=== PATIENT | female | born 1990 | race African-American/Black ===

== ENCOUNTER 2020-07-13 14:54 | Emergency (ER) | payer OTHER ==
[~2020-07-13] VITALS: Ht 160 cm; Wt 68.0 kg
--- NOTE | 2020-07-13 17:01 | PHYS DOC ---
Past History Past Medical History: No Pertinent History (ALINA BURROWS APRN) Additional Past Surgical Histo: right foot surgery (ALINA BURROWS APRN) Alcohol Use: Occasionally (ALINA BURROWS APRN) General Adult EDM: Chief Complaint: ABDOMINAL PAIN HPI: HPI: Patient is a 30-year-old female who presents with abdominal pain x3 days. Patient reports the pain is left lower quadrant and also right lower quadrant. Last bowel movement was last night, patient reports hard stool and took stool softener with little relief. Patient reports the pain is a crampy feeling "it feels like it is hard to walk that I might be constipated". Patient also reports taking Pepto with no relief. Patient denies nausea, vomiting, diarrhea, fevers. No complaints of pain or frequency with urination. (ALINA BURROWS APRN) Review of Systems: Review of Systems: Constitutional: Denies fever or chills Eyes: Denies change in visual acuity HENT: Denies nasal congestion or sore throat Respiratory: Denies cough or shortness of breath Cardiovascular: Denies chest pain or edema GI: Reports right lower quadrant, left lower quadrant abdominal pain. Denies nausea, vomiting, bloody stools or diarrhea : Denies dysuria, frequency Musculoskeletal: Denies back pain or joint pain Integument: Denies rash Neurologic: Denies headache, focal weakness or sensory changes Endocrine: Denies polyuria or polydipsia Lymphatic: Denies swollen glands Psychiatric: Denies depression or anxiety (ALINA BURROWS APRN) Allergies: Allergies: Allergies Coded Allergies Type Severity Reaction Last Updated Verified No Known Drug Allergies 07/13/20 No (ALINA BURROWS APRN) Physical Exam: PE: Constitutional: Well developed, well nourished, no acute distress, non-toxic appearance. [] HENT: Normocephalic, atraumatic, bilateral external ears normal, oropharynx moist, no oral exudates, nose normal. [] Eyes: PERRLA, EOMI, conjunctiva normal, no discharge. [] Neck: Normal range of motion, no tenderness, supple, no stridor. [] Cardiovascular:Heart rate regular rhythm, no murmur [] Lungs & Thorax: Bilateral breath sounds clear to auscultation [] Abdomen: Bowel sounds normal, soft, right lower quadrant and left lower quadrant tenderness, no masses, no pulsatile masses. [] Skin: Warm, dry, no erythema, no rash. [] Back: No tenderness, no CVA tenderness. [] Extremities: No tenderness, no cyanosis, no clubbing, ROM intact, no edema. [] Neurologic: Alert and oriented X 3, normal motor function, normal sensory function, no focal deficits noted. [] Psychologic: Affect normal, judgement normal, mood normal. [] (ALINA BURROWS APRN) Current Patient Data: Labs: Laboratory Tests Test 07/13/20 16:47 POC Urine HCG, Qualitative hcg negative (Negative) Vital Signs: Vital Signs Date Time Temp Pulse Resp B/P (MAP) Pulse Ox O2 Delivery O2 Flow Rate FiO2 07/13/20 15:54 75 18 113/77 (89) 99 Room Air 07/13/20 15:25 97.8 (ALINA BURROWS APRN) EKG: EKG: [] (ALINA BURROWS APRN) Radiology/Procedures: Radiology/Procedures: []CT ABDOMEN+PELVIS WO INDICATION: Reason: RLQ , LLQ PAIN / Spl. Instructions: / History: EXAM: Noncontrast CT of the abdomen and pelvis. Coronal and sagittal reformatted images were performed. PQRS compliance statement: One or more of the following individualized dose reduction techniques were utilized for this examination: 1. Automated exposure control 2. Adjustment of the mA and/or kV according to patient size 3. Use of iterative reconstruction technique COMPARISON: None FINDINGS: No free air, free fluid, or fluid collection. Lower chest: The visualized lower lungs are aerated. No pleural or pericardial effusion. ABDOMEN: Liver: The noncontrast liver is homogeneous in attenuation. Gallbladder and biliary: Normal gallbladder without radiopaque stone. Normal caliber bile ducts. Spleen: Normal spleen. Pancreas: The noncontrast pancreas is homogeneous in attenuation without peripancreatic inflammatory changes. Adrenal glands: Normal adrenal glands. Kidneys and ureters: No opaque urinary calculi. Normal kidneys and ureters. GI tract: The stomach is decompressed and poorly evaluated. Normal caliber small bowel and colon. Normal appendix. Moderate colonic stool burden. Vascular structures: Normal caliber abdominal aorta. Lymph nodes: No lymphadenopathy in the abdomen or pelvis. PELVIS: Genitourinary system: Urinary bladder is decompressed. Uterus is present. SKELETAL STRUCTURES AND SOFT TISSUES: No fracture or destructive lesion in the visualized skeleton. IMPRESSION: No acute findings. Electronically signed by: Mahesh Lyles MD (07/13/2020 5:20 PM) [facility] DICTATED AND SIGNED BY: MAHESH LYLES MD DATE: 07/13/20 661 CC: BLAINE SPENCE DO; ALINA BURROWS APRN; PCP,NO ~MTH0 0 (ALINA BURROWS APRN) Heart Score: Risk Factors: Risk Factors: DM, Current or recent (<one month) smoker, HTN, HLP, family history of CAD, obesity. Risk Scores: Score 0 - 3: 2.5% MACE over next 6 weeks - Discharge Home Score 4 - 6: 20.3% MACE over next 6 weeks - Admit for Clinical Observation Score 7 - 10: 72.7% MACE over next 6 weeks - Early Invasive Strategies (ALINA BURROWS APRN) Course & Med Decision Making: Course & Med Decision Making Pertinent Labs and Imaging studies reviewed. (See chart for details) [] 30-year-old female with abdominal pain x3 days pain is located in the left lower quadrant and right lower quadrant. Patient states "she feels like it is hard to walk and she might be constipated". Patient reports taking Pepto and will softener with little relief. His last bowel movement was yesterday patient reports that it was small and hard. All labs negative, CT abdomen and pelvis negative. UA negative for UTI. Discharging patient to home. Educate patient on taking stool softeners at home for constipation. Patient to follow-up with primary care physician if symptoms are not relieved in the next 2 days. Patient can return to ER if symptoms worsen. (ALINA BURROWS APRN) Dragon Disclaimer: Dragon Disclaimer: This electronic medical record was generated, in whole or in part, using a voice recognition dictation system. (ALINA BURROWS APRN) Attending Co-Sign I oversaw on the above date of service of this patient and discussed the care with the FAMILY LIVING EDUCATOR. Patient nontoxic, hemodynamically stable and ambulatory without an acute abdomen. I agree with the findings, plan of care, and disposition as documented. (BLAINE SPENCE DO) Departure Departure: Impression: Primary Impression: Abdominal pain Qualified Codes: R10.30 - Lower abdominal pain, unspecified Additional Impression: Constipation Disposition: 01 DC HOME SELF CARE/HOMELESS Condition: GOOD Referrals: PCP,NO (PCP) Patient Instructions: Constipation, Adult, [id number] Additional Instructions: Room for pain pain in the left lower quadrant and right lower quadrant. All labs are within normal limits, CT of your abdomen and pelvis were both negative. Urine analysis was negative for infection. Continue taking stool softeners at home for constipation. Please follow-up with primary care physician if symptoms are not relieved in the next 2 days. You can return to ER if symptoms worsen. ALINA BURROWS APRN Jul 13, 2020 17:01 BLAINE SPENCE DO Jul 14, 2020 06:54
[2020-07-13 17:17] LABS: BILIRUBIN,URINE NEG (NEG); CLARITY,URINE CLEAR; COLOR,URINE YELLOW; GLUCOSE,URINE NEG (NEG); NITRITE,URINE NEG (NEG); UROBILINOGEN,URINE 0.2 mg/dL (0.2 mg/dL)
[2020-07-13 17:22] LABS: BASO # 0.1 x10^3/uL (0.0-0.2); BASO % 1 % (0-3); EOS # 0.2 x10^3/uL (0.0-0.7); EOS % 3 % (0-3); HEMATOCRIT 37.8 % (36.0-47.0); HEMOGLOBIN 12.3 g/dL (12.0-15.5); LYMPH # 2.6 x10^3/uL (1.0-4.8); LYMPH % 34 % (24-48); MEAN CORPUSCULAR HEMOGLOBIN 27 pg (25-35); MEAN CORPUSCULAR HGB CONC 33 g/dL (31-37); MEAN CORPUSCULAR VOLUME 84 fL (79-100); MONO # 0.6 x10^3/uL (0.0-1.1); MONO % 8 % (0-9); NEUT # 4.1 x10^3uL (1.8-7.7); NEUT % 54 % (31-73); PLATELET COUNT 337 x10^3/uL (140-400); RED BLOOD COUNT 4.51 x10^6/uL (3.50-5.40); RED CELL DISTRIBUTION WIDTH 14.2 % (11.5-14.5); WHITE BLOOD COUNT 7.6 x10^3/uL (4.0-11.0)
[2020-07-13 17:22] LABS: BACTERIA,URINE FEW /HPF (0-FEW); SQUAMOUS EPITHELIAL CELL,UR OCC /LPF; WBC,URINE OCC /HPF (0-4)
--- NOTE | 2020-07-13 17:23 | RAD ---
CT ABDOMEN+PELVIS WO INDICATION: Reason: RLQ , LLQ PAIN / Spl. Instructions: / History: EXAM: Noncontrast CT of the abdomen and pelvis. Coronal and sagittal reformatted images were perform ed. PQRS compliance statement: One or more of the following individualized dose reduction techniques were utilized for this examinat ion: 1. Automated exposure control 2. Adjustment of the mA and/or kV according to patient size 3. Use of iterative reconstruction technique COMPARISON: None FINDINGS: No free air, free fluid, or fluid collection. Lower chest: The visualized lower lungs are aerated. No pleural or pericardial effusion. ABDOMEN: Liver: The noncontrast liver is homogeneous in attenuation. Gallbladder and biliary: Normal gallbladder without radiopaque stone. Normal caliber bile ducts. Spleen: Normal spleen. Pancreas: The noncontrast pancreas is homogeneous in attenuation without peripancreatic inflammatory changes. Adrenal glands: Normal adrenal glands. Kidneys and ureters: No opaque urinary calculi. Normal kidneys and ureters. GI tract: The stomach is decompressed and poorly evaluated. Normal caliber small bowel and colon. Nor mal appendix. Moderate colonic stool burden. Vascular structures: Normal caliber abdominal aorta. Lymph nodes: No lymphadenopathy in the abdomen or pelvis. PELVIS: Genitourinary system: Urinary bladder is decompressed. Uterus is present. SKELETAL STRUCTURES AND SOFT TISSUES: No fracture or destructive lesion in the visualized skeleton. IMPRESSION: No acute findings. Electronically signed by: Levi Gasca MD (07/13/2020 5:20 PM) [facility]
[2020-07-13 17:30] LABS: CREATININE 0.7 mg/dL (0.6-1.0); GFR 120.6; POTASSIUM 4.3 mmol/L (3.5-5.1)
[2020-07-13 17:36] LABS: ALBUMIN 3.8 g/dL (3.4-5.0); TOTAL BILIRUBIN 0.3 mg/dL (0.2-1.0); TOTAL PROTEIN 7.7 g/dL (6.4-8.2)
[2020-07-13 17:53] VITALS: BP 115/81
== END 2020-07-13 17:53 | disposition home or self-care (01) ==
LOC: ER 14:54
DX: K59.00 Constipation, unspecified (principal); R10.32 Left lower quadrant pain; R10.31 Right lower quadrant pain
CPT/HCPCS: 36415; 74176; 80053; 81001; 81025; 85025; 87086; 99284

== ENCOUNTER 2020-12-30 14:00 | Emergency (ER) | payer OTHER ==
[~2020-12-30] VITALS: Ht 160 cm; Wt 67.2 kg
[2020-12-30 14:10] VITALS: BP 115/75
--- NOTE | 2020-12-30 14:28 | PHYS DOC ---
Past History Past Medical History: Migraines (SIENA JAY APRN) Past Surgical History: Other Additional Past Surgical Histo: right foot surgery (SIENA JAY APRN) Alcohol Use: Occasionally (SIENA JAY APRN) General Adult EDM: Chief Complaint: GENERALIZED BODY ACHES HPI: HPI: Patient is a 30-year-old -[place] female comes to the ER today for migraine headache and generalized body aches. She has chronic body aches and fatigue and is currently being worked up for possible autoimmune disorder. She states that they have ruled out lupus. The migraine started this morning and the pain is located in the right frontal region. The pain is constant and it does not radiate, no aggravating or alleviating factors patient reports that she has just been trying to rest to help with the migraine. She is also reporting photophobia. She does not take any current medications for her migraine headaches but states that she has an appointment to follow-up soon with a neurologist. She denies any sick exposures, cough, shortness of breath, fevers, abdominal pain, nausea vomiting or diarrhea, dizziness. She states this is not the worst headache of her life. (SIENA JAY APRN) Review of Systems: Review of Systems: 14 body systems of the review of systems have been reviewed. See HPI for pertinent positive and negative responses, otherwise all other systems are negative, nonpertinent or noncontributory (SIENA JAY APRN) Allergies: Allergies: Allergies Coded Allergies Type Severity Reaction Last Updated Verified No Known Drug Allergies 07/13/20 No (SIENA JAY APRN) Physical Exam: PE: Constitutional: Well developed, well nourished, no acute distress, non-toxic appearance. [] HENT: Normocephalic, atraumatic Eyes: PERRLA, EOMI, conjunctiva normal, no discharge. [] Neck: Normal range of motion, no tenderness, supple, no stridor. [] Cardiovascular:Heart rate regular rhythm, no murmur [] Lungs & Thorax: Bilateral breath sounds clear to auscultation [] Abdomen: Bowel sounds normal, soft, no tenderness, no masses, no pulsatile masses. [] Skin: Warm, dry, no erythema, no rash. [] Back: No bony spinal tenderness with palpation, patient does have generalized back pain [] Extremities: no cyanosis, no clubbing, ROM intact, no edema, patient has no joint tenderness is reporting generalized pain with palpation all extremities [] Neurologic: Alert and oriented X 3, normal motor function, normal sensory f unction, no focal deficits noted. [] Psychologic: Affect normal, judgement normal, mood normal. [] (SIENA JAY APRN) Current Patient Data: Vital Signs: Vital Signs Date Time Temp Pulse Resp B/P (MAP) Pulse Ox O2 Delivery O2 Flow Rate FiO2 12/30/20 14:10 98.6 63 20 115/75 (88) 98 Room Air (SIENA JAY APRN) EKG: EKG: [] (SIENA JAY APRN) Radiology/Procedures: Radiology/Procedures: [] (SIENA JAY APRN) Heart Score: C/O Chest Pain: No Risk Factors: Risk Factors: DM, Current or recent (<one month) smoker, HTN, HLP, family history of CAD, obesity. Risk Scores: Score 0 - 3: 2.5% MACE over next 6 weeks - Discharge Home Score 4 - 6: 20.3% MACE over next 6 weeks - Admit for Clinical Observation Score 7 - 10: 72.7% MACE over next 6 weeks - Early Invasive Strategies (SIENA JAY APRN) Course & Med Decision Making: Course & Med Decision Making Pertinent Labs and Imaging studies reviewed. (See chart for details) Patient is a 30-year-old female that was seen in the ER today for migraine headache along with chronic body aches. She currently takes no meds for her migraines but has an appointment to follow-up with the neurologist. She is currently being evaluated for possible autoimmune disorder related to her chronic body aches and chronic fatigue. In the ER today she was given Compazine, Benadryl, and Toradol. Following medication administration patient reports that she is feeling much better and no longer has a headache. She was educated on treatments at home for her headaches such as Tylenol or ibuprofen, rest in a dark quiet room, avoidance of electronics. She is resting comfortably on the ER cot. Given the patient's response to treatment I agree with her that this was her typical migraine headache. She was educated on the need to continue to follow-up with the neurologist and follow-up regarding her possible autoimmune disorder. Patient is agreeable with her treatment plan. (SIENA JAY APRN) Course & Med Decision Making I oversaw on the above date of service of this patient. This patient was evaluated, examined, treated, and dispositioned from the emergency department by the mid-level practitioner. Although I was working at the time and available for consultation, no assistance was requested and I did not see or immediately direct the care of this patient. I reviewed note and agree to findings, plan of care, and disposition as stated. Electronically signed, Blaine Spence DO (BLAINE SPENCE DO) Muna Disclaimer: Muna Disclaimer: This electronic medical record was generated, in whole or in part, using a voice recognition dictation system. (SIENA JAY APRN) Departure Departure: Impression: Primary Impression: Migraine Qualified Codes: G43.009 - Migraine without aura, not intractable, without status migrainosus Disposition: HOME / SELF CARE / HOMELESS Condition: GOOD Referrals: PCP,NO (PCP) Patient Instructions: Migraine Headache Additional Instructions: Thank you for choosing [facility] [place] and allowing me to participate in your care. As we have discussed, your findings indicate you are experiencing a migraine headache. As we have discussed, the treatment includes Tylenol/ibuprofen, rest in a dark quiet room, avoidance of electronics. It may be beneficial for you to keep a headache log to help determine what triggers her migraines. Please keep your appointment with the neurologist to determine if there are any additional treatments available to you. Regarding your chronic generalized body aches please continue to follow-up with your doctor to rule out a possible autoimmune disorder that may be causing the symptoms. Please follow up with your primary care provider tomorrow regarding your ER visit. If your symptoms worsen or you develop severe headache, uncontrollable nausea or vomiting, altered mental status, dizziness, fevers, neck stiffness please return. SIENA JAY APRN Dec 30, 2020 14:28 BLAINE SPENCE DO Jan 01, 2021 07:12
[2020-12-30] MEDS ORDERED: KETOROLAC 15 MG/ML VIAL. IVP ONE (14:30)
[2020-12-30] MEDS ORDERED: diphenhydrAMINE 50 MG/ML VIAL IVP ONE (14:30)
[2020-12-30] MEDS ORDERED: PROCHLORPERAZINE 10 MG/2 ML VIAL. IV ONE (14:30)
[2020-12-30] MEDS ORDERED: IV NORMAL SALINE 1,000ML 1,000 ML IV ONE (14:30)
== END 2020-12-30 15:34 | disposition home or self-care (01) ==
LOC: ER 14:00
DX: G43.909 Migraine, unspecified, not intractable, without status migrainosus (principal)
CPT/HCPCS: 81025; 96361; 96374; 96375; 99284; J0780; J1200; J1885; J7030

== ENCOUNTER 2021-06-21 05:17 | Emergency (ER) | payer OTHER ==
[~2021-06-21] VITALS: Ht 160 cm; Wt 61.7 kg
--- NOTE | 2021-06-21 05:19 | PHYS DOC ---
Past History Past Medical History: Migraines (REBECCA BRIDGES MD) Past Surgical History: Other Additional Past Surgical Histo: right foot surgery (REBECCA BRIDGES MD) Alcohol Use: Occasionally (REBECCA BRIDGES MD) General Adult HPI: HPI: ". I hurt everywhere.. fever, sore throat.. chills.." Patient is a 31 year old female who presents with above hx and complaints of sore throat, fever, chills, malaise, arthralgia, myalgia, and nausea. No recent travel. No specific ill contacts. No history immunosuppression. Normally healthy. (REBECCA BRIDGES MD) Review of Systems: Review of Systems: Constitutional: Complains of fever or chills Eyes: Denies change in visual acuity HENT: Planes of nasal congestion and sore throat Respiratory: Denies cough or shortness of breath Cardiovascular: Denies chest pain or edema GI: Denies abdominal pain, nausea, vomiting, bloody stools or diarrhea : Denies dysuria Musculoskeletal: Denies back pain or joint pain Integument: Denies rash Neurologic: Denies headache, focal weakness or sensory changes Endocrine: Denies polyuria or polydipsia Lymphatic: Denies swollen glands Psychiatric: Denies depression or anxiety (REBECCA BRIDGES MD) Family History: Family History: Noncontributory to presentation (REBECCA BRIDGES MD) Current Medications: Current Meds: See nursing for home meds (REBECCA BRIDGES MD) Allergies: Allergies: Allergies Coded Allergies Type Severity Reaction Last Updated Verified No Known Drug Allergies 07/13/20 No (REBECCA BRIDGES MD) Physical Exam: PE: Constitutional: Well developed, well nourished, moderate o acute distress, non- toxic appearance. [] HENT: Normocephalic, atraumatic, bilateral external ears normal, oropharynx injected pharynx,, no oral exudates, nose normal. [] Eyes: PERRLA, EOMI, conjunctiva normal, no discharge. [] Neck: Normal range of motion, no tenderness, supple, no stridor. [] Cardiovascular:Heart rate regular rhythm, no murmur [] Lungs & Thorax: Bilateral breath sounds to apex with few scattered wheezes on auscultation [] Abdomen: Bowel sounds normal, soft, no tenderness, no masses, no pulsatile masses. [] Skin: Warm, dry, no erythema, no rash. [] Back: No tenderness, no CVA tenderness. [] Extremities: No tenderness, no cyanosis, no clubbing, ROM intact, no edema. [] Neurologic: Alert and oriented X 3, normal motor function, normal sensory function, no focal deficits noted. [] Psychologic: Affect normal, judgement normal, mood normal. [] (REBECCA BRIDGES MD) EKG: EKG: [] (REBECCA BRIDGES MD) Radiology/Procedures: Radiology/Procedures: [] (REBECCA BRIDGES MD) Heart Score: C/O Chest Pain: N/A Risk Factors: Risk Factors: DM, Current or recent (<one month) smoker, HTN, HLP, family history of CAD, obesity. Risk Scores: Score 0 - 3: 2.5% MACE over next 6 weeks - Discharge Home Score 4 - 6: 20.3% MACE over next 6 weeks - Admit for Clinical Observation Score 7 - 10: 72.7% MACE over next 6 weeks - Early Invasive Strategies (REBECCA BRIDGES MD) Course & Med Decision Making: Course & Med Decision Making Pertinent Labs and Imaging studies reviewed. (See chart for details) Pt. to push fluids. Take tylenol and ibuprofen for pain. Gargle with Listerine. Endorsed to Dr Spence Impression: 1. Pharyngitis- Suspect Viral Syndrome [] (REBECCA BRIDGES MD) Course & Med Decision Making I assumed care of paitnet after signout from off going physician. I reviewed ER workup, and repeated aspects of HPI and PE No indication for further workup, discussed likely viral/self-limiting nature of current illness and need for supportive care practices and close outpatient follow-up (BLAINE SPENCE DO) Muna Disclaimer: Muna Disclaimer: This electronic medical record was generated, in whole or in part, using a voice recognition dictation system. (REBECCA BRIDGES MD) Departure Departure: Impression: Primary Impression: Viral syndrome Disposition: HOME / SELF CARE / HOMELESS Condition: STABLE Referrals: PCP,NO (PCP) Patient Instructions: Viral Syndrome Additional Instructions: You were seen for fatigue, sore throat, body aches, and possible infection with COVID-19. Your physical exam was reassuring. We tested you for COVID-19 but this test does not come back for 1 to 2 days. In the meantime you need to quarantine yourself at home away from all other individuals, especially those who are elderly or have any other chronic health issues or an immunocompromised status. You should return to the ED if you develop worsening cough, shortness of breath, chest pain, or any other new or concerning symptoms. Alternate Tylenol and ibuprofen as needed for body aches and pain. If your test does come back positive you need to quarantine yourself for 10 days until symptom-free. You should make sure to drink plenty of fluids and get plenty of rest. Dragon Disclaimer This chart was dictated in whole or in part using Voice Recognition software in a busy, high-work load, and often noisy Emergency Department environment. It may contain unintended and wholly unrecognized errors or omissions. (REBECCA BRIDGES MD) Dragon Disclaimer This chart was dictated in whole or in part using Voice Recognition software in a busy, high-work load, and often noisy Emergency Department environment. It may contain unintended and wholly unrecognized errors or omissions. (BLAINE SPENCE DO) Dragon Disclaimer This chart was dictated in whole or in part using Voice Recognition software in a busy, high-work load, and often noisy Emergency Department environment. It may contain unintended and wholly unrecognized errors or omissions. (REBECCA BRIDGES MD) Dragon Disclaimer This chart was dictated in whole or in part using Voice Recognition software in a busy, high-work load, and often noisy Emergency Department environment. It may contain unintended and wholly unrecognized errors or omissions. (BLAINE SPENCE DO) REBECCA BRIDGES MD Jun 21, 2021 05:19 BLAINE SPENCE DO Jun 21, 2021 07:40
[2021-06-21] MEDS ORDERED: ACETAMINOPHEN 500 MG TABLET PO ONE (05:45)
[2021-06-21] MEDS ORDERED: predniSONE 10 MG TABLET. PO ONE (05:45)
[2021-06-21 07:18] LABS: INFLUENZA A PATIENT NEGATIVE (NEGATIVE); INFLUENZA B PATIENT NEGATIVE (NEGATIVE)
[2021-06-21 07:30] LABS: BILIRUBIN,URINE NEG (NEG); CLARITY,URINE HAZY; COLOR,URINE YELLOW; GLUCOSE,URINE NEG (NEG); NITRITE,URINE NEG (NEG); UROBILINOGEN,URINE 0.2 mg/dL (0.2 mg/dL)
[2021-06-21 07:31] LABS: BACTERIA,URINE FEW /HPF (0-FEW); RBC,URINE OCC /HPF (0-2); SQUAMOUS EPITHELIAL CELL,UR MANY /LPF
[2021-06-21 07:35] LABS: BARBITURATES NEG (NEG); BENZODIAZEPINES NEG (NEG); CANNABINOIDS NEG (NEG); COCAINE NEG (NEG); METHADONE NEG (NEG); OPIATES NEG (NEG); PHENCYCLIDINE NEG (NEG)
[2021-06-21 07:42] LABS: AMPHETAMINE/METHAMPHETAMINE NEG (NEG)
[2021-06-21 08:03] VITALS: BP 119/78
== END 2021-06-21 08:06 | disposition home or self-care (01) ==
LOC: ER 05:17
DX: B34.9 Viral infection, unspecified (principal); G43.909 Migraine, unspecified, not intractable, without status migrainosus; Z20.822 Contact with and (suspected) exposure to COVID-19
CPT/HCPCS: 80307; 81001; 81025; 87070; 87086; 87426; 87804; 87880; 99283; C9803; J7512; U0003